=== PATIENT | male | born 1980 | race Caucasian/White ===

== ENCOUNTER 2018-12-16 19:51 | Emergency (ER) | payer OTHER ==
[~2018-12-16] VITALS: Ht 185.4 cm; Wt 105.9 kg
[2018-12-16 20:09] VITALS: BP 131/89; PULSE 102; TEMP 97
== END 2018-12-16 21:20 | disposition home or self-care (01) ==
LOC: COL.ER 19:51
DX: S93.602A Unspecified sprain of left foot, initial encounter (principal); X50.1XXA Overexertion from prolonged static or awkward postures, initial encounter; Y92.59 Other trade areas as the place of occurrence of the external cause

== ENCOUNTER 2019-03-27 22:57 | Emergency (ER) | payer OTHER ==
[~2019-03-27] VITALS: Ht 185.4 cm; Wt 104.5 kg
[2019-03-27 23:02] VITALS: BP 142/95; TEMP 97.7
[2019-03-28] MEDS ORDERED: ATIVAN 1MG T1 MG/TAB PO (00:55)
[2019-03-28 01:17] VITALS: PULSE 76
== END 2019-03-28 01:19 | disposition home or self-care (01) ==
LOC: COL.ER 22:57
DX: F41.9 Anxiety disorder, unspecified (principal); Z86.59 Personal history of other mental and behavioral disorders; Z98.890 Other specified postprocedural states

== ENCOUNTER 2020-07-23 23:14 | Emergency (ER) | payer BC ==
[~2020-07-23] VITALS: Ht 185.4 cm; Wt 113.6 kg
[~2020-07-23 23:14] MED LIST: ATIVAN 1MG T1 MG/TAB PO
[2020-07-23 23:35] VITALS: BP 127/83; TEMP 99.9
[2020-07-24] MEDS ORDERED: NORCO 325 MG-51 TAB PO (00:18)
[2020-07-24] MEDS ORDERED: CRUTCHES MC (00:19)
[2020-07-24 00:30] VITALS: PULSE 95
== END 2020-07-24 00:30 | disposition home or self-care (01) ==
LOC: COL.ER 23:14
DX: S82.842A Displaced bimalleolar fracture of left lower leg, initial encounter for closed fracture (principal); S82.442A Displaced spiral fracture of shaft of left fibula, initial encounter for closed fracture; X50.0XXA Overexertion from strenuous movement or load, initial encounter; Y92.513 Shop (commercial) as the place of occurrence of the external cause; Y99.0 Civilian activity done for income or pay